=== PATIENT | female | born 1985 | race American Indian/Alaskan Native ===

== ENCOUNTER 2018-03-18 18:44 | Emergency (ER) | payer MEDICAID ==
[2018-03-18] MEDS ORDERED: IBUPROFEN ONE (19:31)
[2018-03-18] MEDS ORDERED: IBUPROFEN PO ONE (19:35)
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
[2018-03-19 00:20] VITALS: BP 151/94
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
== END 2018-03-19 00:51 | disposition home or self-care (01) ==
LOC: ED 18:44
DX: S60.222A Contusion of left hand, initial encounter (principal); Z88.1 Allergy status to other antibiotic agents; Z88.6 Allergy status to analgesic agent; Y04.2XXA Assault by strike against or bumped into by another person, initial encounter; Y93.89 Activity, other specified; Y99.8 Other external cause status; Y92.019 Unspecified place in single-family (private) house as the place of occurrence of the external cause
CPT/HCPCS: 70110; 71046; 99283

== ENCOUNTER 2018-08-07 17:07 | Emergency (ER) | payer MEDICAID, OTHER ==
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
[2018-08-07 18:04] LABS: Basophils # (Auto) 0.1 K/mm3 (0.0-0.1); Basophils % (Auto) 1.2 % (0.0-1.8); Eosinophils # (Auto) 0.1 K/mm3 (0.0-0.4); Eosinophils % (Auto) 0.8 % (0.0-4.3); Hemoglobin 12.5 gm/dl (10.1-14.3); Lymphocytes % (Auto) 28.5 % (13.4-35.0); Mean Corpuscular HGB Conc 33 % (30-34); Mean Corpuscular Volume 84 fl (79-97); Monocytes # (Auto) 0.7 K/mm3 (0.0-0.8); Monocytes % (Auto) 6.8 % (0.0-7.3); Platelet Count 256 K/mm3 (140-440); Red Blood Count 4.52 M/mm3 (3.65-5.03)
[2018-08-07 18:20] LABS: BUN/Creatinine Ratio 12; Blood Urea Nitrogen 6 mg/dL (7-17); Calcium 9.2 mg/dL (8.4-10.2); Hemolysis Index 6
[2018-08-07 18:52] LABS: Bacteria,Urine 1+ /HPF (Negative); Bilirubin,Urine NEG (Negative); Blood,Urine NEG (Negative); Color,Urine Yellow (Yellow); Mucus,Urine FEW /HPF; Protein,Urine <15 mg/dL mg/dL (Negative); Urobilinogen,Urine < 2.0 mg/dL (<2.0)
--- NOTE | 2018-08-07 20:30 | Emergency Department Report ---
ED Female HPI - General Chief complaint: Vaginal Bleeding Stated complaint: 13WKS /SPOTTING Time Seen by Provider: 08/07/18 17:34 Source: patient Mode of arrival: Ambulatory Limitations: No Limitations - History of Present Illness Initial comments: 33-year-old -[place] female that comes in for pelvic cramping and spotting for 45 minutes prior to arrival. Patient currently is not on care or vitamins. Patient reports that the pain is intermittent. MD Complaint: vaginal bleeding, pelvic pain Onset/Timin -: days(s) Location: suprapubic Severity scale (0 -10): 3 Quality: cramping Consistency: intermittent Improves with: none Worsens with: none Are you Now?: Yes Last Menstrual Period: 05/04/18 EDC: 02/08/19 Associated Symptoms: vaginal bleeding, abdominal pain - Related Data Sexually active: Yes : 3 Para: 2 Previous Rx's Medication Instructions Recorded Last Taken Type Acetaminophen/Codeine [Tylenol #3] 1 tab PO Q6H PRN #15 tab 05/31/14 Unknown Rx Cyclopentolate 1% [Cyclogyl] 1 drops OP BID PRN #1 bottle 05/31/14 Unknown Rx Gentamicin 0.3% Ophth Soln 1 drops OP Q4H #1 bottle 05/31/14 Unknown Rx Ibuprofen [Motrin 800 MG tab] 800 mg PO Q8HR PRN #30 tablet 03/17/15 Unknown Rx Ketorolac [Toradol] 10 mg PO Q6H PRN #15 tablet 03/19/18 Unknown Rx methOCARBAMOL [Robaxin] 750 mg PO Q8H PRN #21 tablet 03/19/18 Unknown Rx Nitrofurantoin [place]/M-Cryst 100 mg PO Q12HR 10 Days #20 capsule 08/07/18 Unknown Rx [Macrobid CAP] Allergies Allergy/AdvReac Type Severity Reaction Status Date / Time acetaminophen Allergy Swelling Verified 08/07/18 17:10 [From Tylenol PM] diphenhydramine HCl Allergy Swelling Verified 08/07/18 17:10 [From Tylenol PM] ED Review of Systems ROS: Stated complaint: 13WKS /SPOTTING Other details as noted in HPI Comment: All other systems reviewed and negative Gastrointestinal: abdominal pain ED Past Medical Hx - Past Medical History Previous Medical History?: No Hx Hypertension: (h/o HTN-now resolved) - Surgical History Past Surgical History?: No Additional Surgical History: vag procedure - Social History Smoking Status: Never Smoker Substance Use Type: Other - Medications Home Medications: Home Medications Medication Instructions Recorded Confirmed Last Taken Type Acetaminophen/Codeine [Tylenol #3] 1 tab PO Q6H PRN #15 tab 05/31/14 Unknown Rx Cyclopentolate 1% [Cyclogyl] 1 drops OP BID PRN #1 bottle 05/31/14 Unknown Rx Gentamicin 0.3% Ophth Soln 1 drops OP Q4H #1 bottle 05/31/14 Unknown Rx Ibuprofen [Motrin 800 MG tab] 800 mg PO Q8HR PRN #30 tablet 03/17/15 Unknown Rx Ketorolac [Toradol] 10 mg PO Q6H PRN #15 tablet 03/19/18 Unknown Rx methOCARBAMOL [Robaxin] 750 mg PO Q8H PRN #21 tablet 03/19/18 Unknown Rx Nitrofurantoin [place]/M-Cryst 100 mg PO Q12HR 10 Days #20 capsule 08/07/18 Unknown Rx [Macrobid CAP] ED Physical Exam - General Limitations: No Limitations General appearance: alert, in no apparent distress - Head Head exam: Present: atraumatic, normocephalic - Eye Eye exam: Present: normal appearance - ENT ENT exam: Present: mucous membranes moist - Neck Neck exam: Present: normal inspection - Respiratory Respiratory exam: Present: normal lung sounds bilaterally. Absent: respiratory distress - Cardiovascular Cardiovascular Exam: Present: regular rate, normal rhythm. Absent: systolic m urmur, diastolic murmur, rubs, gallop - GI/Abdominal GI/Abdominal exam: Present: soft, normal bowel sounds - Extremities Exam Extremities exam: Present: normal inspection - Back Exam Back exam: Present: normal inspection - Neurological Exam Neurological exam: Present: alert, oriented X3 - Psychiatric Psychiatric exam: Present: normal affect, normal mood - Skin Skin exam: Present: warm, dry, intact, normal color. Absent: rash ED Course Vital Signs 08/07/18 17:34 Temperature 98.5 F Pulse Rate 103 H Respiratory 18 Rate Blood Pressure 147/84 O2 Sat by Pulse 98 Oximetry ED Medical Decision Making - Lab Data Result diagrams: 08/07/18 17:40 08/07/18 17:40 Critical care attestation.: If time is entered above; I have spent that time in minutes in the direct care of this critically ill patient, excluding procedure time. ED Disposition Clinical Impression: Vaginal spotting UTI (urinary tract infection) during Qualifiers: Trimester: first trimester Qualified Code(s): O23.41 - Unspecified infection of urinary tract in , first trimester Disposition: TO HOME OR SELFCARE Is pt being admited?: No Does the pt Need Aspirin: No Condition: Stable Instructions: Urinary Tract Infection in Women (ED), Threatened Miscarriage (ED) Additional Instructions: Complete antibiotics as prescribed. Tylenol as needed for pain management. 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 Prescriptions: Nitrofurantoin [place]/M-Cryst [Macrobid CAP] 100 mg PO Q12HR 10 Days #20 capsule Referrals: BUDDY LIM MD [Primary Care Provider] - 3-5 Days [facility] [Provider Group] - 3-5 Days [facility] [Provider Group] - 3-5 Days [facility] [Provider Group] - 3-5 Days [facility] [Provider Group] - 3-5 Days
--- NOTE | 2018-08-07 20:52 | Ultrasound Report ---
PROCEDURE: US OB <= 14 WEEKS FETUS TECHNIQUE: OB ultrasound obtained. HISTORY: Vaginal bleeding COMPARISONS: None FINDINGS: Uterus measures 11.5 x 7.1 x 8.5 cm. Single IUP visualized with crown-rump length of 7.3 cm correspon ding gestational age of 13 weeks and 3 days. Viable fetus with heart rate of 156 bpm. Placenta is anteriorly located. Right ovary measures 2.4 x 1.8 x 2.4 cm. Left ovary measures 2.4 x 1.6 x 2.2 cm. Doppler flow seen in both ovaries. IMPRESSION: Single IUP visualized with crown-rump length of 7.3 cm corresponding gestational age of 13 weeks and 3 days. Viable fetus with heart rate of 156 bpm.. This document is electronically signed by Sherrill Melchor MD., August 07 2018 08:50:42 PM ET
[2018-08-07 22:19] VITALS: BP 138/78
== END 2018-08-07 22:19 | disposition home or self-care (01) ==
LOC: ED 17:07
DX: O23.41 Unspecified infection of urinary tract in pregnancy, first trimester (principal); O20.9 Hemorrhage in early pregnancy, unspecified; Z79.899 Other long term (current) drug therapy; Z3A.13 13 weeks gestation of pregnancy; Z88.6 Allergy status to analgesic agent
CPT/HCPCS: 36415; 76801; 80048; 81001; 84702; 85025; 86900; 86901; 87086; 99284; G0480; 80320

== ENCOUNTER 2019-01-18 10:14 | Outpatient (CLI) | payer OTHER ==
[2019-01-18] MEDS ORDERED: LACTATED RINGERS 1,000 ML ONE ×3 (11:24→15:16)
[2019-01-18] MEDS ORDERED: TERBUTALINE 1 MG/1 ML INJ ONE (11:25)
[2019-01-18 12:02] LABS: Hematocrit 33.9 % (30.3-42.9); Hemoglobin 10.9 gm/dl (10.1-14.3); Mean Corpuscular HGB Conc 32 % (30-34); Mean Corpuscular Volume 77 fl (79-97); Platelet Count 184 K/mm3 (140-440); Red Blood Count 4.39 M/mm3 (3.65-5.03); Red Cell Distribution Width 15.4 % (13.2-15.2)
[2019-01-18] MEDS ORDERED: BICITRA ORAL LIQD 30ML ONE (12:53)
[2019-01-18] MEDS ORDERED: BUPIVACAINE/PF (0.5%) 5 MG/1 ML 10 ML VIAL INFILTRATI ONE (14:31)
[2019-01-18] MEDS ORDERED: ePHEDrine SULFATE 50 MG/1 ML INJ IV PRN (14:51)
[2019-01-18] MEDS ORDERED: NALOXONE 2 MG/2 ML INJ IV PRN (14:51)
[2019-01-18] MEDS ORDERED: fentaNYL-BUPIV 2 MCG/ML-0.125% 200 MCG/100 ML BAG EPIDURAL SCH (15:00)
--- NOTE | 2019-01-18 15:10 | History and Physical Report ---
History of Present Illness Date of examination: 01/18/19 Date of admission: 01/18/2019 Chief complaint: breech presentation History of present illness: 33y/o @ 37+0 weeks presents for an external cephalic version secondary to breech presentation. course complicated by chronic hypertension, h/o preeclampsia, STD exposure. Past History Past Medical History: hypertension Past Surgical History: no surgical history GUIDE CHANGER History: herpes Social history: single - Obstetrical History Expected Date of Delivery: 02/08/19 Actual Gestation: 37 Week(s) 0 Day(s) : 3 Para: 2 Hx # Term Pregnancies: 2 Number of Pregnancies: 0 Spontaneous Abortions: 0 Induced : 0 Number of Living Children: 2 Medications and Allergies Allergies Allergy/AdvReac Type Severity Reaction Status Date / Time acetaminophen Allergy Swelling Verified 08/07/18 17:10 [From Tylenol PM] diphenhydramine HCl Allergy Swelling Verified 08/07/18 17:10 [From Tylenol PM] Home Medications Medication Instructions Recorded Confirmed Last Taken Type Acetaminophen/Codeine [Tylenol #3] 1 tab PO Q6H PRN #15 tab 05/31/14 Unknown Rx Cyclopentolate 1% [Cyclogyl] 1 drops OP BID PRN #1 bottle 05/31/14 Unknown Rx Gentamicin 0.3% Ophth Soln 1 drops OP Q4H #1 bottle 05/31/14 Unknown Rx Ibuprofen [Motrin 800 MG tab] 800 mg PO Q8HR PRN #30 tablet 03/17/15 Unknown Rx Ketorolac [Toradol] 10 mg PO Q6H PRN #15 tablet 03/19/18 Unknown Rx methOCARBAMOL [Robaxin] 750 mg PO Q8H PRN #21 tablet 03/19/18 Unknown Rx Nitrofurantoin [place]/M-Cryst 100 mg PO Q12HR 10 Days #20 capsule 08/07/18 Unknown Rx [Macrobid CAP] Active Meds: Active Medications Ephedrine Sulfate (Ephedrine Sulfate) 10 mg IV Q2M PRN PRN Reason: Hypotension Fentanyl/Bupivacaine/Sodium Chlor (Fentanyl-Bupiv 2 Mcg/Ml-0.125%) 200 mcg in 100 mls @ 12 mls/hr EPIDURAL TITR ROWENA; Protocol Naloxone HCl (Naloxone) 0.2 mg IV Q5M PRN PRN Reason: Respiratory sedation Review of Systems All systems: negative Genitourinary: no vaginal bleeding, no leakage of fluid - Vital Signs Vital signs: Vital Signs Temp Pulse Resp BP 98.3 F 85 18 118/63 01/18/19 11:38 01/18/19 11:38 01/18/19 11:38 01/18/19 11:38 Temp Pulse Resp BP Pulse Ox 98.3 F 110 H 20 112/57 100 01/18/19 11:38 01/18/19 15:02 01/18/19 14:00 01/18/19 15:00 01/18/19 15:02 - Physical Exam Breasts: Positive: deferred Cardiovascular: Regular rate Lungs: Positive: Clear to auscultation Abdomen: Positive: normal appearance Results Result Diagrams: 01/18/19 11:42 Abnormal lab results 01/18/19 Range/Units 11:42 MCV 77 L (79-97) fl MCH 25 L (28-32) pg RDW 15.4 H (13.2-15.2) % All other labs normal. Assessment and Plan - Patient Problems (1) Breech presentation Current Visit: Yes Status: Acute Plan to address problem: scheduled to undergo an ECV
--- NOTE | 2019-01-18 15:14 | Event Note ---
Date: 01/18/19 After placement of the epidural, bradycardic episode occurred. Patient experienced nausea and vomiting with associated hypotension. IV bolus along with O2 administered. tracing prior to epidural was Cat I. Will postpone procedure until well being is assured.
--- NOTE | 2019-01-18 17:17 | Operative Report ---
Operative Report Operative Report: Date of procedure: 01/18/2019 Pre-operative diagnosis: at 37+0 weeks; breech presentation Post-operative diagnosis: Same as above Procedure name(s): External cephalic version Surgeon: Minal Butler M.D. Anesthesia: Regional Findings [place] gestation in breech presentation Procedure Prior to performing the procedure the patient had been counseled and written consent had been obtained. The patient was given regional anesthesia without complication. A nonstress test was performed prior to and after placement of the regional anesthesia. An ultrasound was used to verify that the head was at the maternal left side. The procedure was initiated with maneuvering the fetus into vertex presentation. 3 attempts were made and the well-being was assessed in between each attempt. After conclusion of the third attempt the fetus was noted to be in transverse presentation. There was no evidence of any active bleeding or leakage of fluid. The patient received prolonged monitoring on labor and delivery.
[2019-01-18 21:12] VITALS: BP 118/57
--- NOTE | 2019-01-18 21:15 | Anesthesia Consultation ---
Anesthesia Consult and Med Hx Date of service: 01/18/19 - Airway Anesthetic Teeth Evaluation: Poor ROM Head & Neck: Adequate Mental/Hyoid Distance: Adequate Mallampati Class: Class II Intubation Access Assessment: Probably Good - Pulmonary Exam CTA: Yes - Cardiac Exam Cardiac Exam: RRR - Pre-Operative Health Status ASA Pre-Surgery Classification: ASA2 Proposed Anesthetic Plan: Epidural - Pulmonary Hx Smoking: No Hx Asthma: No Hx Respiratory Symptoms: No SOB: No COPD: No Home Oxygen Therapy: No Hx Pneumonia: No Hx Sleep Apnea: No - Cardiovascular System Hx Hypertension: Yes (with second ) Hx Coronary Artery Disease: No Hx Heart Attack/AMI: No Hx Angina: No Hx Percutaneous Transluminal Coronary Angioplasty (PTCA): No Hx Cardia Arrhythmia: No Hx Pacemaker: No Hx Internal Defibrillator: No Hx Valvular Heart Disease: No Hx Heart Murmur: No Hx Peripheral Vascular Disease: No - Central Nervous System Hx Neuromuscular Disorder: No Hx Seizures: No CVA: No Hx Back Pain: No Hx Psychiatric Problems: No - Gastrointestinal Hx Ulcer: No Hx Gastroesophageal Reflux Disease: No - Endocrine Hx Renal Disease: No Hx End Stage Renal Disease: No Hx Cirrhosis: No Hx Liver Disease: No Hx Insulin Dependent Diabetes: No Hx Non-Insulin Dependent Diabetes: No Hx Thyroid Disease: No Hx Hypothyroidism: No Hx Hyperthyroidism: No - Hematic Hx Anemia: No Hx Sickle Cell Disease: No - Other Systems Hx Alcohol Use: No Hx Substance Use: No Hx Cancer: No Hx Obesity: Yes
--- NOTE | 2019-01-18 23:16 | Ultrasound Report ---
US OB BPP wo non-stress INDICATION / CLINICAL INFORMATION: BPP. COMPARISON: None available. FINDINGS: Biophysical profile score is 8 of 8. cardiac activity was recorded at 150 bpm. Signer Name: Shar Hernandez MD Signed: 01/18/2019 11:12 PM Workstation Name: [id number]
== END 2019-01-18 22:05 | disposition home or self-care (01) ==
LOC: TRG 10:14 → LD 10:15 → TRG 22:05
PROVIDERS: ATTEND Obstetrics & Gynecology
DX: O47.1 False labor at or after 37 completed weeks of gestation (principal); Z3A.37 37 weeks gestation of pregnancy
CPT/HCPCS: 36415; 76819; 85027; 86850; 86900; 86901; J3105; J7120

== ENCOUNTER 2019-01-26 14:08 | Outpatient (CLI) | payer OTHER ==
[2019-01-26 14:41] VITALS: BP 127/73
[2019-01-26] MEDS ORDERED: LACTATED RINGERS 0 ML ONE (16:57)
--- NOTE | 2019-01-26 17:38 | Ultrasound Report ---
ULTRASOUND OBSTETRIC LIMITED ULTRASOUND BIOPHYSICAL PROFILE INDICATION / CLINICAL INFORMATION: Uterine contractions, labor COMPARISON: Biophysical profile 01/18/2019 FINDINGS: BREATHING MOVEMENT = 0 GROSS BODY MOVEMENT = 2 TONE = 2 QUALITATIVE AMNIOTIC FLUID VOLUME = 2 TOTAL BIOPHYSICAL SCORE = 6/8 AMNIOTIC FLUID INDEX (cm) = 10.3 PRESENTATION: Cephalic. HEART RATE (beats per minute): 137 ADDITIONAL FINDINGS: None. IMPRESSION: 1. Biophysical Score = 6/8 Signer Name: Amos Stokes MD Signed: 01/26/2019 5:33 PM Workstation Name: [id number]
== END 2019-01-26 17:17 | disposition home or self-care (01) ==
LOC: TRG 14:08
PROVIDERS: ATTEND Obstetrics & Gynecology
DX: O47.1 False labor at or after 37 completed weeks of gestation (principal); Z3A.38 38 weeks gestation of pregnancy
CPT/HCPCS: 59025; 76815; 76819; J7120

== ENCOUNTER 2019-01-27 02:07 | Inpatient (IN) | payer OTHER ==
[2019-01-27] MEDS ORDERED: NALOXONE 0.4 MG/1 ML INJ IV PRN ×2 (03:34→20:50)
[2019-01-27] MEDS ORDERED: TERBUTALINE 1 MG/1 ML INJ SUB-Q PRN (03:34)
[2019-01-27] MEDS ORDERED: ePHEDrine SULFATE 50 MG/1 ML INJ IV PRN ×2 (03:34→14:44)
[2019-01-27] MEDS ORDERED: LIDOCAINE (2%) 20 MG/1 ML VIAL 20 ML MDV INFILTRATI ONE (03:34)
[2019-01-27] MEDS ORDERED: ONDANSETRON 4 MG/2 ML INJ IV PRN (03:34)
[2019-01-27] MEDS ORDERED: AMPICILLIN/NS 2 GM/100 ML 2 GM/100 ML BAG IV ONE (03:34)
[2019-01-27] MEDS ORDERED: TERBUTALINE 1 MG/1 ML INJ IVP PRN (03:34)
[2019-01-27] MEDS ORDERED: MINERAL OIL 30 ML ORAL LIQD PO PRN (03:34)
[2019-01-27 03:59] LABS: Hematocrit 37.4 % (30.3-42.9); Mean Corpuscular HGB Conc 32 % (30-34); Mean Corpuscular Volume 79 fl (79-97); Platelet Count 172 K/mm3 (140-440); Red Blood Count 4.77 M/mm3 (3.65-5.03); Red Cell Distribution Width 16.2 % (13.2-15.2)
[2019-01-27] MEDS ORDERED: OXYTOCIN 20 UNIT/1000ML DRIP 20 UNITS/1,000 ML BAG IV SCH ×3 (04:00→20:50)
[2019-01-27] MEDS ORDERED: OXYTOCIN DRIP 30 UNITS/500 ML BAG IV SCH ×2 (04:00)
[2019-01-27] MEDS ORDERED: LACTATED RINGERS 1,000 ML IV SCH ×2 (04:00→16:00)
[2019-01-27] MEDS: BUTORPHANOL 2 MG/1 ML INJ IV PRN ×2 (04:00→08:34)
--- NOTE | 2019-01-27 04:58 | History and Physical Report ---
History of Present Illness Date of examination: 01/27/19 Date of admission: 01/27/19 03:34 Chief complaint: contractions History of present illness: Pt is a 33 year old VASILE 02/08/19 at 38w2d presents with regular contractions and advanced cervical dilation of 5 cm. She was evaluated in triage yesterday and was 3 cm at that time. She denies vaginal bleeding or leakage of fluid. 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, chlamydia (treated with negative test of cure ), herpes, trichomonas (treated with negative test of cure ) Family/Genetic History: heart disease, hypertension Social history: no significant social history - Obstetrical History Expected Date of Delivery: 02/08/19 Actual Gestation: 38 Week(s) 2 Day(s) : 3 Para: 2 Hx # Term Pregnancies: 2 Number of Pregnancies: 0 Spontaneous Abortions: 0 Induced : 0 Number of Living Children: 2 Medications and Allergies Allergies Allergy/AdvReac Type Severity Reaction Status Date / Time diphenhydramine HCl Allergy Mild Swelling Verified 01/27/19 03:03 [From Tylenol PM] Home Medications Medication Instructions Recorded Confirmed Last Taken Type Acetaminophen/Codeine [Tylenol #3] 1 tab PO Q6H PRN #15 tab 05/31/14 Unknown Rx Cyclopentolate 1% [Cyclogyl] 1 drops OP BID PRN #1 bottle 05/31/14 Unknown Rx Gentamicin 0.3% Ophth Soln 1 drops OP Q4H #1 bottle 05/31/14 Unknown Rx Ibuprofen [Motrin 800 MG tab] 800 mg PO Q8HR PRN #30 tablet 03/17/15 Unknown Rx Ketorolac [Toradol] 10 mg PO Q6H PRN #15 tablet 03/19/18 Unknown Rx methOCARBAMOL [Robaxin] 750 mg PO Q8H PRN #21 tablet 03/19/18 Unknown Rx Nitrofurantoin Wake/M-Cryst 100 mg PO Q12HR 10 Days #20 capsule 08/07/18 Unknown Rx [Macrobid CAP] Active Meds: Active Medications Butorphanol Tartrate (Stadol) 2 mg IV Q2H PRN PRN Reason: Pain , Severe (7-10) Last Admin: 01/27/19 04:00 Dose: 2 mg Documented by: Ephedrine Sulfate (Ephedrine Sulfate) 10 mg IV Q2M PRN PRN Reason: Hypotension Fentanyl (Sublimaze) 100 mcg IV Q2H PRN PRN Reason: Labor Pain Oxytocin/Sodium Chloride (Pitocin/Ns 20 Unit/1000ml Drip) 20 units in 1,000 mls @ 125 mls/hr IV DIRECT ROWENA Oxytocin/Sodium Chloride (Pitocin/Ns 30 Unit/500ml) 30 units in 500 mls @ 1 mls/hr IV TITR ROWENA; Protocol Oxytocin/Sodium Chloride (Pitocin/Ns 30 Unit/500ml) 30 units in 500 mls @ 4 mls/hr IV TITR ROWENA; Protocol Lactated Ringer's (Lactated Ringers) 1,000 mls @ 125 mls/hr IV DIRECT ROWENA Ampicillin Sodium (Ampicillin/Ns 1 Gm/50 Ml) 1 gm in 50 mls @ 100 mls/hr IV Q4HR ROWENA; Protocol Mineral Oil (Mineral Oil) 30 ml PO QHS PRN PRN Reason: Constipation Naloxone HCl (Naloxone) 0.1 mg IV Q2MIN PRN PRN Reason: Res Rate </= 8 or 02 SAT < 92% Ondansetron HCl (Zofran) 4 mg IV Q8H PRN PRN Reason: Nausea And Vomiting Terbutaline Sulfate (Brethine) 0.25 mg SUB-Q ONCE PRN PRN Reason: Hyperstimulation/Hypertonicity Terbutaline Sulfate (Brethine) 0.25 mg IVP ONCE PRN PRN Reason: Hyperstimulation/Hypertonicity Review of Systems All systems: negative - Vital Signs Vital signs: Vital Signs Temp Pulse Resp BP Pulse Ox 98.4 F 93 H 22 130/71 98 01/27/19 03:04 01/27/19 03:04 01/27/19 03:04 01/27/19 03:04 01/27/19 03:04 Temp Pulse Resp BP Pulse Ox 98.4 F 103 H 22 136/73 98 01/27/19 03:04 01/27/19 04:51 01/27/19 04:39 01/27/19 04:39 01/27/19 04:51 - Physical Exam Breasts: Positive: deferred Cardiovascular: Regular rate Lungs: Positive: Clear to auscultation Abdomen: Positive: soft (obese ) Genitourinary (Female): Positive: normal external genitalia Uterus: Positive: enlarged (gravid ) Extremities: Positive: normal - Obstetrical FHR: auscultation normal Uterine Contraction Monitor Mode: External Cervical Dilatation: 6.5 Cervical Effacement Percentage: 100 station: -2 Uterine Contraction Pattern: Regular Uterine Tone Measurement Phase: Resting Uterine Contraction Intensity: Strong/Firm Results Result Diagrams: 01/27/19 03:00 Abnormal lab results 01/27/19 Range/Units 03:00 WBC 11.3 H (4.5-11.0) K/mm3 MCH 25 L (28-32) pg RDW 16.2 H (13.2-15.2) % All other labs normal. Assessment and Plan A: IUP at 38w2d Active labor GBS positive Genital Herpes Obesity P: Admit to labor and delivery Routine intrapartum care
[2019-01-27] MEDS: AMPICILLIN/NS 1 GM/50 ML 1 GM/50 ML BAG IV SCH ×2 (07:21→12:56)
--- NOTE | 2019-01-27 08:25 | Event Note ---
Date: 01/27/19 SVE 7-/-3 bulging bag of water. Pt elects for AROM. AROM copious clear fluid with reassuring FHT throughout.
[2019-01-27] MEDS: fentaNYL 100 MCG/2 ML INJ IV PRN ×2 (10:47→13:18)
--- NOTE | 2019-01-27 12:51 | Event Note ---
Date: 01/27/19 SVE unchanged despite regular uterine contractions. FSE and IUPC placed in sterile fashion. Initiate epidural and Pitocin augmentation. FHT remain Category 1 Continue to monitor
[2019-01-27] MEDS ORDERED: DINOPROSTONE 10 MG VAG SUPP VG ONE (13:50)
[2019-01-27] MEDS ORDERED: NALOXONE 2 MG/2 ML INJ IV PRN (14:44)
[2019-01-27] MEDS ORDERED: BICITRA ORAL LIQD 30ML ONE (14:46)
[2019-01-27] MEDS ORDERED: FAMOTIDINE 20 MG/2 ML INJ IV ONE ×2 (14:46→15:58)
[2019-01-27] MEDS ORDERED: ceFAZolin/Water 2 GM/20 ML 2 GM/20 ML SYRINGE IV ONE (14:46)
[2019-01-27] MEDS ORDERED: METOCLOPRAMIDE 10 MG/2 ML INJ ONE (14:46)
[2019-01-27] MEDS ORDERED: DEXMEDETOMIDINE 200 MCG/2 ML VIAL IV ONE (14:52)
[2019-01-27] MEDS ORDERED: fentaNYL-BUPIV 2 MCG/ML-0.125% 200 MCG/100 ML BAG EPIDURAL SCH (15:00)
[2019-01-27] MEDS ORDERED: METOCLOPRAMIDE 10 MG/2 ML INJ IV ONE (15:58)
[2019-01-27] MEDS ORDERED: BICITRA ORAL LIQD 30ML PO ONE (15:58)
[2019-01-27] MEDS ORDERED: LIDOCAINE MPF (2%) 20 MG/1 ML VIAL 5 ML ONE (16:18)
[2019-01-27] MEDS ORDERED: OXYTOCIN 10 UNIT/1 ML INJ ONE (16:44)
[2019-01-27] MEDS ORDERED: ONDANSETRON 4 MG/2 ML INJ ONE (16:59)
[2019-01-27] MEDS ORDERED: KETOROLAC 30 MG/1 ML INJ ONE ×2 (17:01→18:39)
--- NOTE | 2019-01-27 17:16 | Operative Report ---
Operative Report Operative Report: Date of procedure: January 27, 2019 Preoperative diagnosis: 1) IUP at 38w2d 2) Active labor 3) Arrest of Dilation 4) Obesity Postoperative diagnosis: Same Procedure: Primary low transverse section Surgeon: Sunshine Stovall M.D. Anesthesia: Regional Findings: 1) Viable male , Apgars 8 and 9, weight 2798g, (6 lb 2.6 oz) in cephalic presentation. Occiput Posterior 2) Normal-appearing uterus ovaries and tubes Estimated blood loss: 900 mL IV fluids: 800 mL Urine output: 100 mL, clear at the end of the procedure Drains: Feliciano to gravity Specimens: Placenta to pathology Complications: Counts correct x 3 Disposition: Stable to PACU Indication for procedure: Pt is a 33 year old -[place] female at 38w2d presents in active labor and did not progress beyond 8 cm over 4 hours of adequate contractility. The decision was made to proceed to delivery. Operation in detail: After the risks, benefits, alternatives and complications were explained to the patient she gave informed consent for the procedure. She was subsequently taken to the operating room where regional anesthesia was noted to be adequate. She was subsequently placed in the dorsal supine position with leftward tilt and prepped and draped in a normal sterile fashion. heart tones were noted prior to incision. A timeout was performed. A Pfannenstiel skin incision was made with the knife and carried down to the layer of the fascia with the Bovie. The fascia was incised in the midline and the fascial incision was extended bilaterally with the Pierce scissors. The fascial incision was then stretched. The rectus muscles were then in the midline. The peritoneum was then entered bluntly. The peritoneal incision was extended with good visualization of the bladder. The peritoneal incision was then stretched. An Mitch retractor was placed. The bladder blade was placed. The vesicouterine peritoneum was grasped with smooth pickups and incised with Metzenbaum scissors. Metzenbaum scissors were used to extend the incision bilaterally. The bladder flap was then created digitally and the bladder blade was replaced. A transverse incision was made in the lower uterine segment with a knife and extended bilaterally with the bandage scissors. The head was delivered without difficulty followed by shoulders and body. was bulb suctioned at delivery. The cord was clamped and cut and the was handed to NICU staff in attendance. Cord blood was collected. The placenta was then delivered manually. The uterus was then exteriorized and cleared of all clots and debris. The hysterotomy was then reapproximated with 0 Vicryl in a running locked fashion. A second layer of the same suture was used in an imbricating fashion. The hysterotomy was inspected and hemostasis was noted. The uterus was placed back into the peritoneal cavity. The gutters were irrigated and cleared of all clots and debris. The hysterotomy was again inspected and noted to be hemostatic. Hemoblast was placed over the hysterotomy. Surgicel was placed over the hysterot mellisa. Intercede was placed over the anterior surface of the uterus. The peritoneum was reapproximated with 3-0 Vicryl in a running fashion. The rectus muscles were reapproximated with figure of eight of 0 Vicryl. The fascia was reapproximated with 1 PDS in a running fashion. The subcutaneous tissue was reapproximated with 3-0 Vicryl in a running fashion. The skin was reapproximated with 4-0 Vicryl in a subcuticular fashion. The incision was then covered with steri strips and a pressure dressing. The procedure was then ended. The patient tolerated the procedure well and was taken to the PACU in stable condition. All instrument, lap, and needle counts were correct 3.
--- NOTE | 2019-01-27 17:16 | Procedure Note ---
OB Delivery Note - Delivery Date of Delivery: 01/27/19 Surgeon: GREG SWANSON Estimated blood loss: other (900 mL) - Section Preop diagnosis: arrest of dilation Postop diagnosis: same section procedure: section, primary low transverse Disposition: PACU Complications: none Narrative: Please see operative report - A at 1 minute: 8 at 5 minutes: 9 Gender: Male (2798g (6lb 2.6 oz) at 1633 pm)
--- NOTE | 2019-01-27 17:26 | Anesthesia Consultation ---
Anesthesia Consult and Med Hx Date of service: 01/27/19 - Airway Anesthetic Teeth Evaluation: Good ROM Head & Neck: Adequate Mental/Hyoid Distance: Adequate Mallampati Class: Class II Intubation Access Assessment: Probably Good - Pulmonary Exam CTA: Yes - Cardiac Exam Cardiac Exam: RRR - Pre-Operative Health Status ASA Pre-Surgery Classification: ASA2 Proposed Anesthetic Plan: Epidural - Pulmonary Hx Smoking: No Hx Asthma: No Hx Respiratory Symptoms: No SOB: No COPD: No Hx Pneumonia: No Hx Sleep Apnea: No - Cardiovascular System Hx Hypertension: No Hx Coronary Artery Disease: No Hx Heart Attack/AMI: No Hx Angina: No Hx Percutaneous Transluminal Coronary Angioplasty (PTCA): No Hx Cardia Arrhythmia: No Hx Pacemaker: No Hx Internal Defibrillator: No Hx Valvular Heart Disease: No Hx Heart Murmur: No Hx Peripheral Vascular Disease: No - Central Nervous System Hx Neuromuscular Disorder: No Hx Seizures: No CVA: No Hx Back Pain: No Hx Psychiatric Problems: No - Gastrointestinal Hx Ulcer: No Hx Gastroesophageal Reflux Disease: No - Endocrine Hx Renal Disease: No Hx End Stage Renal Disease: No Hx Cirrhosis: No Hx Liver Disease: No Hx Insulin Dependent Diabetes: No Hx Non-Insulin Dependent Diabetes: No Hx Thyroid Disease: No Hx Hypothyroidism: No Hx Hyperthyroidism: No - Hematic Hx Anemia: No Hx Sickle Cell Disease: No - Other Systems Hx Alcohol Use: No Hx Substance Use: No Hx Cancer: No Hx Obesity: Yes
--- NOTE | 2019-01-27 17:27 | Post Anesthesia Evaluation ---
- Post Anesthesia Evaluation Patient Participated: Yes Airway Patent: Yes Stable Respiratory Function: Yes Nausea/Vomiting: No Temp > 96.8F: Yes Pain Manageable: Yes Adequeate Hydration: Yes Anesthesia Complications: No Block Receding Appropriately: Yes Patient on Ventilator: No
--- NOTE | 2019-01-27 17:27 | Anesthesia Day of Surgery ---
Anesthesia Day of Surgery - Day of Surgery Patient Examined: Yes Patient H&P Reviewed: Yes Patient is NPO: Yes Beta Blockers: No Cardiac Clearance: No Pulmonary Clearance: No Tim's Test: N/A
[2019-01-27 19:35] LABS: Basophils # (Auto) 0.1 K/mm3 (0.0-0.1); Basophils % (Auto) 0.4 % (0.0-1.8); Hematocrit 34.3 % (30.3-42.9); Lymphocytes % (Auto) 6.1 % (13.4-35.0); Mean Corpuscular HGB Conc 32 % (30-34); Mean Corpuscular Volume 78 fl (79-97); Monocytes # (Auto) 1.3 K/mm3 (0.0-0.8); Monocytes % (Auto) 7.9 % (0.0-7.3); Platelet Count 186 K/mm3 (140-440); Red Blood Count 4.41 M/mm3 (3.65-5.03); Red Cell Distribution Width 16.1 % (13.2-15.2)
[2019-01-27] MEDS ORDERED: MAGNESIUM HYDROXIDE (MOM) ORAL LIQD UDC PO PRN (20:50)
[2019-01-27] MEDS ORDERED: LANOLIN/ZINC/DIMETHICONE (LANSINOH) 7 GM TP PRN (20:50)
[2019-01-27] MEDS ORDERED: SIMETHICONE 80 MG CHEW TAB PO PRN (20:50)
[2019-01-27] MEDS ORDERED: WITCH HAZEL/ GLYCERIN PAD TP PRN (20:50)
[2019-01-27] MEDS ORDERED: D5W/LACTATED RINGERS 1,000 ML IV SCH (20:50)
[2019-01-27] MEDS ORDERED: MORPHINE 2 MG/1 ML INJ IV PRN (20:50)
[2019-01-27] MEDS: MORPHINE 4 MG/1 ML INJ IV PRN (21:15)
[2019-01-27] MEDS ORDERED: ceFAZolin/NS 1 GM/50 ML 1 GM/50 ML BAG IV SCH (23:00)
[2019-01-28] MEDS: KETOROLAC 30 MG/1 ML INJ IV PRN ×2 (00:12→05:31)
[2019-01-28] MEDS: MORPHINE 4 MG/1 ML INJ IV PRN (02:44)
[2019-01-28] MEDS ORDERED: MEASLES, MUMPS & RUBELLA 12,500 UNIT/0.5 ML VACCINE SUB-Q ONE (06:00)
[2019-01-28] MEDS ORDERED: TETANUS,DIPH,PERTUSS(ACELL) VACCINE 0.5 ML SYRINGE IM ONE (06:00)
[2019-01-28 06:11] LABS: Hematocrit 29.6 % (30.3-42.9); Hemoglobin 9.8 gm/dl (10.1-14.3)
[2019-01-28] MEDS: oxyCODONE /ACETAMINOPHEN 5-325MG TAB PO PRN ×2 (08:25→16:05)
--- NOTE | 2019-01-28 08:58 | Progress Note ---
Assessment and Plan A/P POD 1 s/p primary csec for failute to progress routine PP care Subjective - Subjective Date of service: 01/28/19 Principal diagnosis: s/p primarey csec for failutre to progress Patient reports: appetite normal, voiding normally, pain well controlled, ambulating normally [place]: doing well Objective - Vital Signs Latest vital signs: Vital Signs Temp Pulse Resp BP BP Pulse Ox 01/28/19 08:06 97.3 F L 95 H 18 123/66 01/28/19 04:00 98.7 F 66 18 108/75 01/27/19 23:30 98.7 F 69 18 112/69 01/27/19 21:21 98.6 F 96 H 20 140/86 140/86 99 01/27/19 18:15 78 24 86/65 99 01/27/19 18:00 78 20 98/49 99 01/27/19 17:55 84 20 112/69 98 01/27/19 17:50 80 24 108/65 97 01/27/19 17:45 77 23 103/62 97 01/27/19 17:40 77 20 109/63 98 01/27/19 17:35 76 20 111/69 97 01/27/19 17:30 77 20 107/68 97 01/27/19 17:25 99.2 F 79 20 97/59 98 01/27/19 16:00 97.9 F 01/27/19 15:52 99 H 108/62 100 01/27/19 15:49 84 96/53 01/27/19 15:47 99 H 100 01/27/19 15:46 90 96/49 01/27/19 15:45 96 H 90 01/27/19 15:43 100 H 94/54 01/27/19 15:42 94 H 100 01/27/19 15:40 82 102/51 01/27/19 15:37 80 108/55 100 01/27/19 15:34 96 H 97/55 01/27/19 15:32 99 H 100 01/27/19 15:31 103 H 109/55 01/27/19 15:28 99 H 100/51 01/27/19 15:27 90 100 01/27/19 15:25 102 H 114/58 01/27/19 15:22 110 H 117/58 98 01/27/19 15:19 112 H 121/72 01/27/19 15:17 106 H 98 01/27/19 15:16 110 H 120/67 01/27/19 15:13 81 130/70 01/27/19 15:12 107 H 99 01/27/19 15:10 100 H 141/69 01/27/19 15:07 104 H 152/70 100 01/27/19 15:04 110 H 144/72 01/27/19 15:01 108 H 146/71 99 01/27/19 14:58 109 H 146/71 01/27/19 14:57 76 79 L 01/27/19 14:55 109 H 140/68 01/27/19 14:52 111 H 99 01/27/19 14:40 119 H 96 01/27/19 14:35 97 H 165/85 98 01/27/19 14:27 106 H 97 01/27/19 14:25 103 H 161/90 01/27/19 14:21 105 H 100 01/27/19 14:15 98 H 94 01/27/19 14:14 97 H 176/123 01/27/19 14:09 110 H 87 Intake and Output 01/27/19 01/28/19 01/28/19 23:59 07:59 15:59 Intake Total 2100 300 480 Output Total 600 Balance 1500 300 480 Intake: IV 2100 Oral 480 Intake, Free Water 300 Output: Urine 600 Uretheral (Feliciano) 100 Other: Total, Intake Amount 480 Voiding Method Indwelling Catheter Estimated Blood Loss 900 - Exam Breasts: Present: normal Cardiovascular: Present: Regular rate, Normal S1 Lungs: Present: Clear to auscultation, Normal air movement Abdomen: Present: normal appearance, soft, normal bowel sounds. Absent: distention, tenderness, guarding Uterus: Present: normal, firm, fundal height below umbilicus. Absent: bogginess, tenderness Extremities: Present: normal Deep Tendon Reflex Grade: Normal +2 Incision: Present: normal, dry, intact - Labs Labs: Abnormal lab results 01/27/19 01/28/19 Range/Units 19:18 05:37 WBC 16.7 H (4.5-11.0) K/mm3 Hgb 9.8 L (10.1-14.3) gm/dl Hct 29.6 L (30.3-42.9) % MCV 78 L (79-97) fl MCH 25 L (28-32) pg RDW 16.1 H (13.2-15.2) % Lymph % (Auto) 6.1 L (13.4-35.0) % Cedar % (Auto) 7.9 H (0.0-7.3) % Lymph # 1.0 L (1.2-5.4) K/mm3 Cedar # 1.3 H (0.0-0.8) K/mm3 Seg Neutrophils % 85.6 H (40.0-70.0) % Seg Neutrophils # 14.3 H (1.8-7.7) K/mm3
[2019-01-28] MEDS: IBUPROFEN 800 MG TAB PO PRN (23:41)
[2019-01-29] MEDS: IBUPROFEN 800 MG TAB PO PRN (05:26)
[2019-01-29] MEDS: oxyCODONE /ACETAMINOPHEN 5-325MG TAB PO PRN ×3 (08:59→21:48)
--- NOTE | 2019-01-29 10:46 | Progress Note ---
Assessment and Plan POD2 s/p primary LTCS Acute anemia- ferrous sulfate Breast feeding education Routine pp care d/c to home on POD3 Subjective - Subjective Date of service: 01/29/19 Principal diagnosis: s/p primary csec for failure to progress Interval history: POD2 s/p primary LTCS Patient reports: appetite normal, voiding normally, pain well controlled, flatus, ambulating normally [place]: doing well, bottle feeding (mom wants to breast feed) Objective - Vital Signs Latest vital signs: Vital Signs Temp Pulse Resp BP BP Pulse Ox 01/29/19 07:31 98.1 F 79 22 113/73 99 01/28/19 23:47 98.1 F 90 20 117/66 99 01/28/19 16:40 97.9 F 98 H 18 114/72 01/28/19 11:53 97.5 F L 80 18 125/77 Intake and Output 01/28/19 01/29/19 01/29/19 23:59 07:59 15:59 Intake Total 480 240 Balance 480 240 Intake: Oral 480 240 Other: Total, Intake Amount 480 240 # Voids Void 1 1 # Bowel Movements 1 - Exam Lungs: Present: Normal air movement Abdomen: Present: soft Uterus: Present: firm, fundal height below umbilicus. Absent: bogginess Extremities: Present: normal Incision: Present: dressed
[2019-01-30] MEDS: oxyCODONE /ACETAMINOPHEN 5-325MG TAB PO PRN ×3 (03:42→17:12)
[2019-01-30 08:49] VITALS: BP 131/85
[2019-01-30] MEDS ORDERED: LORazepam 2 MG/ML VIAL ONE (11:23)
--- NOTE | 2019-01-30 11:29 | Progress Note ---
Assessment and Plan POD3 s/p primary LTCS Acute anemia- ferrous sulfate Breast feeding education D/c to home today Subjective - Subjective Date of service: 01/30/19 Principal diagnosis: s/p primary csec for failure to progress Interval history: POD3 s/p primary LTCS Patient reports: appetite normal, voiding normally, pain well controlled, flatus, ambulating normally : doing well, bottle feeding Objective - Vital Signs Latest vital signs: Vital Signs Temp Pulse Resp BP Pulse Ox 01/30/19 07:33 99.7 F H 84 18 131/85 99 01/30/19 03:42 18 01/29/19 23:24 98.2 F 82 20 124/78 97 01/29/19 21:48 18 01/29/19 16:12 98.3 F 86 20 128/85 98 Intake and Output 01/29/19 01/30/19 01/30/19 23:59 07:59 15:59 Intake Total 960 360 Balance 960 360 Intake: Oral 960 Intake, Free Water 120 Other 240 Other: Total, Intake Amount 240 240 # Voids Void 1 1 - Exam Lungs: Present: Normal air movement Abdomen: Present: soft. Absent: distention, tenderness Uterus: Present: firm, fundal height below umbilicus Extremities: Present: normal Incision: Present: normal, dry, intact
--- NOTE | 2019-01-30 11:32 | Discharge Summary ---
Providers - Providers Date of Admission: 01/27/19 03:34 Date of discharge: 01/30/19 Attending physician: PASCALE PAULINO Primary care physician: PASCALE PAULINO Hospitalization Reason for admission: active labor Delivery: Procedure: primary low transverse Episiotomy: none Laceration: none Incision: normal, dry, intact Other procedures: none complications: none Discharge diagnosis: IUP at term delivered Hospital course: for failure to progress, fetus in OT presentation. course uncomplicated Disposition: DC-30 STILL A PATIENT Plan - Discharge Medications Prescriptions: Ferrous Sulfate [Ferrous Sulfate 324 MG] 324 mg PO BID #60 tablet. Ibuprofen [Motrin] 600 mg PO Q6H PRN #60 tablet PRN Reason: Pain oxyCODONE /ACETAMINOPHEN [Percocet 5/325] 1 tab PO Q6HR PRN #30 tablet PRN Reason: Pain - Provider Discharge Summary Activity: routine, no sex for 6 weeks, no heavy lifting 4 weeks, no strenuous exercise Diet: routine Instructions: routine Additional instructions: [] Smoking cessation referral if applicable(refer to patient education folder for contact #) [] Refer to [facility] Booklet Call your doctor immediately for: * Fever > 100.5 * Heavy vaginal bleeding ( >1 pad per hour) * Severe persistent headache * Shortness of breath * Reddened, hot, painful area to leg or breast * Drainage or odor from incision. * Keep incision clean and dry at all times and follow doctor's instructions regarding bathing/showering - Follow up plan Follow up: PASCALE PAULINO MD [Primary Care Provider] - 14 Days (Please call [facility] to schedule appointment.)
[2019-01-30] MEDS ORDERED: MEASLES, MUMPS & RUBELLA 12,500 UNIT/0.5 ML VACCINE SUB-Q ONE (17:00)
== END 2019-01-30 18:00 | disposition home or self-care (01) | DRG 765 ==
LOC: TRG 02:07 → LD 03:34 → TRG 03:34 → OB 20:22
PROVIDERS: ADMIT Obstetrics & Gynecology; ATTEND Obstetrics & Gynecology
PROC: 10D00Z1 Extraction of Products of Conception, Low, Open Approach (ICD-10-PCS; principal; 2019-01-27)
PROC: 3E0234Z Introduction of Serum, Toxoid and Vaccine into Muscle, Percutaneous Approach (ICD-10-PCS; 2019-01-30)
DX: O64.0XX0 Obstructed labor due to incomplete rotation of fetal head, not applicable or unspecified (principal); O98.32 Other infections with a predominantly sexual mode of transmission complicating childbirth; Z3A.38 38 weeks gestation of pregnancy; Z37.0 Single live birth; Z23 Encounter for immunization; A60.00 Herpesviral infection of urogenital system, unspecified; O99.214 Obesity complicating childbirth; E66.9 Obesity, unspecified; O90.81 Anemia of the puerperium; D64.9 Anemia, unspecified
CPT/HCPCS: 36415; 59025; 76815; 76819; 85014; 85018; 85025; 85027; 86850; 86900; 86901; 88307; G0378; J0290; J0595; J0690; J1885; J2060; J2270; J2405; J2590; J2765; J3010; J3490; J7120; J7121

== ENCOUNTER 2020-04-16 11:00 | Emergency (ER) | payer OTHER ==
[2020-04-16 11:51] VITALS: BP 164/103
--- NOTE | 2020-04-16 12:32 | XRay Report ---
LEFT SHOULDER 3 VIEWS INDICATION: shoulder pain. COMPARISON: None. IMPRESSION: No acute osseous or soft tissue abnormality. No significant DJD. Signer Name: Ramesh Burgos Jr, MD Signed: 04/16/2020 12:27 PM Workstation Name: [id number]
--- NOTE | 2020-04-16 13:46 | Emergency Department Report ---
ED Upper Extremity Inj HPI - General Chief Complaint: Extremity Injury, Upper Stated Complaint: LEFT SHOULDER PAIN Time Seen by Provider: 04/16/20 11:47 Source: patient Mode of arrival: Ambulatory Limitations: No Limitations - History of Present Illness Initial Comments: This is a 35-year-old female nontoxic, well nourished in appearance, no acute signs of distress presents to the ED with c/o of left shoulder pain 2 months. Patient denies any injuries or trauma. Patient denies any numbness, tingling, fever, chills, nausea, vomiting, chest pain, shortness of breath, headache, stiff neck. Patient denies any joint swelling or joint redness. Patient denies decreased range of motion. Patient denies any allergies or significant past medical history. MD Complaint: Injury to:: left, shoulder -: month(s) Other Extremity Injury: Shoulder: Left Severity scale (0 -10): 3 Improves With: immobilization Worsens With: movement of extremity Associated Symptoms: denies other symptoms. denies: weakness, numbness, neck pain, suspects foreign body, nausea/vomiting, heard/felt popping sensat - Related Data Previous Rx's Medication Instructions Recorded Last Taken Type Acetaminophen/Codeine [Tylenol #3] 1 tab PO Q6H PRN #15 tab 05/31/14 Unknown Rx Cyclopentolate 1% [Cyclogyl] 1 drops OP BID PRN #1 bottle 05/31/14 Unknown Rx Gentamicin 0.3% Ophth Soln 1 drops OP Q4H #1 bottle 05/31/14 01/21/19 Rx Ibuprofen [Motrin 800 MG tab] 800 mg PO Q8HR PRN #30 tablet 03/17/15 01/20/19 Rx Ketorolac [Toradol] 10 mg PO Q6H PRN #15 tablet 03/19/18 01/21/19 Rx methOCARBAMOL [Robaxin] 750 mg PO Q8H PRN #21 tablet 03/19/18 01/24/19 Rx Nitrofurantoin Sampson/M-Cryst 100 mg PO Q12HR 10 Days #20 capsule 08/07/18 01/24/19 Rx [Macrobid CAP] Ferrous Sulfate [Ferrous Sulfate 324 mg PO BID #60 tablet. 01/29/19 Unknown Rx 324 MG] Ibuprofen [Motrin] 600 mg PO Q6H PRN #60 tablet 01/29/19 Unknown Rx oxyCODONE /ACETAMINOPHEN [Percocet 1 tab PO Q6HR PRN #30 tablet 01/29/19 Unknown Rx 5/325] Naproxen 500 mg PO Q12H PRN #12 tablet 04/16/20 Unknown Rx Allergies Allergy/AdvReac Type Severity Reaction Status Date / Time No Known Allergies Allergy Unverified 04/16/20 11:43 ED Review of Systems ROS: Stated complaint: LEFT SHOULDER PAIN Other details as noted in HPI Comment: All other systems reviewed and negative Constitutional: denies: chills, fever Eyes: denies: eye pain, eye discharge, vision change ENT: denies: ear pain, throat pain Respiratory: denies: cough, shortness of breath, wheezing Cardiovascular: denies: chest pain, palpitations Endocrine: no symptoms reported Gastrointestinal: denies: abdominal pain, nausea, diarrhea Genitourinary: denies: urgency, dysuria, discharge Musculoskeletal: denies: back pain, joint swelling, arthralgia Skin: denies: rash, lesions Neurological: denies: headache, weakness, paresthesias Psychiatric: denies: anxiety, depression Hematological/Lymphatic: denies: easy bleeding, easy bruising ED Past Medical Hx - Past Medical History Previous Medical History?: No Hx Hypertension: No Hx Heart Attack/AMI: No Hx Congestive Heart Failure: No Hx Diabetes: No Hx Deep Vein Thrombosis: No Hx Liver Disease: No Hx Renal Disease: No Hx Sickle Cell Disease: No Hx Seizures: No Hx Asthma: No Hx COPD: No Hx HIV: No - Surgical History Hx Pacemaker: No Hx Internal Defibrillator: No Additional Surgical History: vag procedure C SECTION - Social History Smoking Status: Former Smoker - Medications Home Medications: Home Medications Medication Instructions Recorded Confirmed Last Taken Type Acetaminophen/Codeine [Tylenol #3] 1 tab PO Q6H PRN #15 tab 05/31/14 01/28/19 Unknown Rx Cyclopentolate 1% [Cyclogyl] 1 drops OP BID PRN #1 bottle 05/31/14 01/28/19 Unknown Rx Gentamicin 0.3% Ophth Soln 1 drops OP Q4H #1 bottle 05/31/14 01/28/19 01/21/19 Rx Ibuprofen [Motrin 800 MG tab] 800 mg PO Q8HR PRN #30 tablet 03/17/15 01/28/19 01/20/19 Rx Ketorolac [Toradol] 10 mg PO Q6H PRN #15 tablet 03/19/18 01/28/19 01/21/19 Rx methOCARBAMOL [Robaxin] 750 mg PO Q8H PRN #21 tablet 03/19/18 01/28/19 01/24/19 Rx Nitrofurantoin Sampson/M-Cryst 100 mg PO Q12HR 10 Days #20 capsule 08/07/18 01/28/19 01/24/19 Rx [Macrobid CAP] Ferrous Sulfate [Ferrous Sulfate 324 mg PO BID #60 tablet. 01/29/19 Unknown Rx 324 MG] Ibuprofen [Motrin] 600 mg PO Q6H PRN #60 tablet 01/29/19 Unknown Rx oxyCODONE /ACETAMINOPHEN [Percocet 1 tab PO Q6HR PRN #30 tablet 01/29/19 Unknown Rx 5/325] Naproxen 500 mg PO Q12H PRN #12 tablet 04/16/20 Unknown Rx ED Physical Exam - General Limitations: No Limitations General appearance: alert, in no apparent distress - Head Head exam: Present: atraumatic, normocephalic - Eye Eye exam: Present: normal appearance - Neck Neck exam: Present: normal inspection, full ROM - Respiratory Respiratory exam: Absent: respiratory distress - Cardiovascular Cardiovascular Exam: Present: regular rate - Extremities Exam Extremities exam: Present: normal inspection, full ROM, tenderness, normal capillary refill. Absent: joint swelling - Expanded Upper Extremity Exam Left General: Present: normal inspection Shoulder Exam: Present: normal inspection, full ROM, tenderness. Absent: swelling, abrasion, laceration, ecchymosis, deformity, crepidus, dislocation, erythema, tenderness over AC joint Upper Arm exam: Present: normal inspection, full ROM. Absent: tenderness, swelling Elbow exam: Present: normal inspection, full ROM. Absent: tenderness, swelling Forearm Wrist exam: Present: normal inspection, full ROM. Absent: tenderness, swelling Hand Wrist exam: Present: normal inspection, full ROM. Absent: tenderness, swelling Vascular: Present: normal capillary refill. Absent: vascular compromise (Neurovascular within normal limits) - Back Exam Back exam: Present: normal inspection, full ROM. Absent: tenderness, CVA tenderness (R), CVA tenderness (L), muscle spasm, paraspinal tenderness, vertebral tenderness, rash noted - Neurological Exam Neurological exam: Present: alert, oriented X3, normal gait - Psychiatric Psychiatric exam: Present: normal affect, normal mood - Skin Skin exam: Present: warm, dry, intact, normal color. Absent: rash ED Course Vital Signs 04/16/20 11:48 Temperature 98.4 F Pulse Rate 93 H Respiratory 20 Rate Blood Pressure 164/103 O2 Sat by Pulse 99 Oximetry - Reevaluation(s) Reevaluation #1: 04/16/20 13:47 Patient is speaking in full sentences with no signs of distress noted. ED Medical Decision Making - Radiology Data Referring Physician: GLADIS PERERA Patient Name: HEBER OATES Date of : 1985 Sex: Female Report Date: 2020-04-16 Report Status: Finalized [facility] [address] [place] [address] XRay Report Signed Patient: HEBER OATES MR#: [id number] : 1985 Acct:[id number] Age/Sex: 35 / F ADM Date: 04/16/20 Loc: ED Attending Dr: Ordering Physician: GLADIS PERERA NP Date of Service: 04/16/20 Procedure(s): XR shoulder 2+V LT Accession Number(s): [id number] cc: GLADIS SCANLON NP Fluoro Time In Minutes: LEFT SHOULDER 3 VIEWS INDICATION: shoulder pain. COMPARISON: None. IMPRESSION: No acute osseous or soft tissue abnormality. No significant DJD. Signer Name: Ramesh Burgos Jr, MD Signed: 04/16/2020 12:27 PM Workstation Name: [id number] Transcribed By: TTR Dictated By: RAMESH BURGOS JR, MD Electronically Authenticated By: RAMESH BURGOS JR, MD Signed Date/Time: 04/16/20 122 DD/ 26 TD/TT: - Medical Decision Making This is a 35-year-old female that presents with left shoulder strain. Patient is stable and was examined by me. I referred patient to an orthopedic doctor for further evaluation for possible MRI. X-ray has been obtained and dictated by the radiologist. Patient is notified of the x-ray report with noted by the patient. Patient does have normal range of motion with no joint swelling. No ecchymosis. no joint redness or swelling. Not warm to touch. No signs of cellulites present. Patient was instructed to RICE therapy. Patient is discharged with Motrin. At time of discharge, the patient does not seem toxic or ill in appearance. No acute signs of distress noted. Patient agrees to discharge treatment plan of care. No further questions noted by the patient. Critical care attestation.: If time is entered above; I have spent that time in minutes in the direct care of this critically ill patient, excluding procedure time. ED Disposition Clinical Impression: Left shoulder strain Qualifiers: Encounter type: initial encounter Qualified Code(s): S46.912A - Strain of unspecified muscle, fascia and tendon at shoulder and upper arm level, left arm, initial encounter Disposition: TO HOME OR SELFCARE Is pt being admited?: No Does the pt Need Aspirin: No Condition: Stable Instructions: RICE Therapy for Routine Care of Injuries, [id number] Additional Instructions: Follow-up with a orthopedic doctor in 3-5 days or if symptoms worsen and continue return to emergency room as soon as possible. Prescriptions: Naproxen 500 mg PO Q12H PRN #12 tablet PRN Reason: Pain , Severe (7-10) Referrals: PRIMARY CARE, [Primary Care Provider] - 3-5 Days MIGNON DALEY MD [Staff Physician] - 3-5 Days Time of Disposition: 13:48
== END 2020-04-16 14:01 | disposition home or self-care (01) ==
LOC: ED 11:00
DX: S46.912A Strain of unspecified muscle, fascia and tendon at shoulder and upper arm level, left arm, initial encounter (principal); Z87.891 Personal history of nicotine dependence; Z79.899 Other long term (current) drug therapy; Z98.890 Other specified postprocedural states; X58.XXXA Exposure to other specified factors, initial encounter; Y93.89 Activity, other specified; Y92.89 Other specified places as the place of occurrence of the external cause; Y99.8 Other external cause status
CPT/HCPCS: 99283

== ENCOUNTER 2020-04-17 11:17 | Emergency (ER) | payer OTHER ==
[2020-04-17 11:46] VITALS: BP 165/105
--- NOTE | 2020-04-17 12:05 | Emergency Department Report ---
Chief Complaint: Headache Stated Complaint: NECK/SHOULDER/HEAD LEFT SIDE PAIN - HPI History of Present Illness: 35-year-old -[place] female presents to the emergency room for her discharge paperwork. As patient states she had to leave to go to work and did not get her paperwork. - Exam Vital Signs: Vital Signs 04/17/20 11:44 Temperature 98.1 F Pulse Rate 95 H Respiratory 16 Rate Blood Pressure 165/105 [Right] O2 Sat by Pulse 100 Oximetry Physical Exam: Patient is alert and oriented x3 no acute distress nontoxic in appearance Neck full range of motion. Extremities full range of motion Ambulatory without difficulties MSE screening note: Focused history and physical exam performed. Due to findings the following was ordered: 35-year-old -[place] female presents to the emergency room for her discharge paperwork. As patient states she had to leave to go to work and did not get her paperwork. Patient decided to leave without her paperwork when she asked what pain medication that the provider was discharging her on. Patient was being discharged home on naproxen. Patient had x-rays done yesterday which showed no acute abnormalities and paperwork stated that she is can follow-up with the orthopedic provider for further evaluation. ED Disposition for MSE Disposition: Z-07 MED SCREENING EXAM-LEFT Is pt being admited?: No Does the pt Need Aspirin: No Condition: Stable
== END 2020-04-17 12:02 | disposition left against medical advice (07) ==
LOC: ED 11:17
DX: M54.2 Cervicalgia (principal); Z53.21 Procedure and treatment not carried out due to patient leaving prior to being seen by health care provider

== ENCOUNTER 2021-09-09 17:29 | Emergency (ER) | payer OTHER ==
--- NOTE | 2021-09-10 01:56 | Emergency Department Report ---
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 She went to the restroom room thinking that she had to have a bowel movement and then noticed some blood whenever she touched down in the vaginal area decided come to emergency department to be evaluated for vaginal bleeding. Has dull crampy pain across her lower abdomen but no fever, chills, sweats. No presyncope. No nausea, no vomiting MD Complaint: vaginal bleeding -: Gradual Location: suprapubic Severity: mild, moderate Quality: dull Consistency: constant Improves with: none Worsens with: none Associated Symptoms: vaginal bleeding - Related Data Sexually active: No Previous Rx's Medication Instructions Recorded Last Taken Type Acetaminophen/Codeine [Tylenol #3] 1 tab PO Q6H PRN #15 tab 05/31/14 Unknown Rx Cyclopentolate 1% [Cyclogyl] 1 drops OP BID PRN #1 bottle 05/31/14 Unknown Rx Gentamicin 0.3% Ophth Soln 1 drops OP Q4H #1 bottle 05/31/14 01/21/19 Rx Ibuprofen [Motrin 800 MG tab] 800 mg PO Q8HR PRN #30 tablet 03/17/15 01/20/19 Rx Ketorolac [Toradol] 10 mg PO Q6H PRN #15 tablet 03/19/18 01/21/19 Rx methOCARBAMOL [Robaxin] 750 mg PO Q8H PRN #21 tablet 03/19/18 01/24/19 Rx Nitrofurantoin Travis/M-Cryst 100 mg PO Q12HR 10 Days #20 capsule 08/07/18 01/24/19 Rx [Macrobid CAP] Ferrous Sulfate [Ferrous Sulfate 324 mg PO BID #60 tablet. 01/29/19 Unknown Rx 324 MG] Ibuprofen [Motrin] 600 mg PO Q6H PRN #60 tablet 01/29/19 Unknown Rx oxyCODONE /ACETAMINOPHEN [Percocet 1 tab PO Q6HR PRN #30 tablet 01/29/19 Unknown Rx 5/325] Naproxen 500 mg PO Q12H PRN #12 tablet 04/16/20 Unknown Rx Allergies Allergy/AdvReac Type Severity Reaction Status Date / Time No Known Allergies Allergy Unverified 04/16/20 11:43 ED Review of Systems ROS: Stated complaint: 15 WEEKS /ABD PAIN AND BLEEDING Other details as noted in HPI Comment: All other systems reviewed and negative ED Past Medical Hx - Past Medical History Hx Hypertension: Yes Hx Heart Attack/AMI: No Hx Congestive Heart Failure: No Hx Diabetes: No Hx Deep Vein Thrombosis: No Hx Liver Disease: No Hx Renal Disease: No Hx Sickle Cell Disease: No Hx Seizures: No Hx Asthma: No Hx COPD: No Hx HIV: No - Surgical History Hx Pacemaker: No Hx Internal Defibrillator: No Additional Surgical History: C section - Social History Smoking Status: Former Smoker - Medications Home Medications: Home Medications Medication Instructions Recorded Confirmed Last Taken Type Acetaminophen/Codeine [Tylenol #3] 1 tab PO Q6H PRN #15 tab 05/31/14 01/28/19 Unknown Rx Cyclopentolate 1% [Cyclogyl] 1 drops OP BID PRN #1 bottle 05/31/14 01/28/19 Unknown Rx Gentamicin 0.3% Ophth Soln 1 drops OP Q4H #1 bottle 05/31/14 01/28/19 01/21/19 Rx Ibuprofen [Motrin 800 MG tab] 800 mg PO Q8HR PRN #30 tablet 03/17/15 01/28/19 01/20/19 Rx Ketorolac [Toradol] 10 mg PO Q6H PRN #15 tablet 03/19/18 01/28/19 01/21/19 Rx methOCARBAMOL [Robaxin] 750 mg PO Q8H PRN #21 tablet 03/19/18 01/28/19 01/24/19 Rx Nitrofurantoin Travis/M-Cryst 100 mg PO Q12HR 10 Days #20 capsule 08/07/18 01/28/19 01/24/19 Rx [Macrobid CAP] Ferrous Sulfate [Ferrous Sulfate 324 mg PO BID #60 tablet. 01/29/19 Unknown Rx 324 MG] Ibuprofen [Motrin] 600 mg PO Q6H PRN #60 tablet 01/29/19 Unknown Rx oxyCODONE /ACETAMINOPHEN [Percocet 1 tab PO Q6HR PRN #30 tablet 01/29/19 Unknown Rx 5/325] Naproxen 500 mg PO Q12H PRN #12 tablet 04/16/20 Unknown Rx ED Physical Exam - General Limitations: No Limitations General appearance: alert, in no apparent distress - Head Head exam: Present: atraumatic, normocephalic - Eye Eye exam: Present: normal appearance - ENT ENT exam: Present: mucous membranes moist - Neck Neck exam: Present: normal inspection - Respiratory Respiratory exam: Present: normal lung sounds bilaterally. Absent: respiratory distress - Cardiovascular Cardiovascular Exam: Present: regular rate, normal rhythm. Absent: systolic murmur, diastolic murmur, rubs, gallop - GI/Abdominal GI/Abdominal exam: Present: soft, normal bowel sounds. Absent: distended, tenderness, guarding, rebound, rigid, hyperactive bowel sounds, hypoactive bowel sounds, organomegaly - Extremities Exam Extremities exam: Present: normal inspection - Back Exam Back exam: Present: normal inspection - Neurological Exam Neurological exam: Present: alert, oriented X3 - Psychiatric Psychiatric exam: Present: normal affect, normal mood - Skin Skin exam: Present: warm, dry, intact, normal color. Absent: rash ED Course Vital Signs 09/09/21 18:21 Temperature 98.3 F Pulse Rate 99 H Respiratory 14 Rate Blood Pressure 137/76 [Right] O2 Sat by Pulse 100 Oximetry ED Medical Decision Making - Lab Data Result diagrams: 09/10/21 02:38 - Radiology Data Radiology results: report reviewed [facility] [address] [place] [address] Ultrasound Report Signed Patient: HEBER OATES MR#: [id number] : 1985 Acct:[id number] Age/Sex: 36 / F ADM Date: 09/09/21 Loc: ED Attending Dr: Ordering Physician: IRVING THORNTON Date of Service: 09/10/21 Procedure(s): US OB transvaginal Accession Number(s): [id number] cc: IRVING THORNTON US OB follow up, US OB transvaginal INDICATION / CLINICAL INFORMATION: 18 weeks and vaginal bleeding COMPARISON: None available. TECHNIQUE: Using a transcutaneous probe, multiple grayscale, color Doppler, and spectral Doppler images of the uterus and fetus were captured and stored. Additional imaging of the cervix using an endovaginal probe with acquisition of multiple brock scale and color Doppler images.. FINDINGS: Single cephalic fetus heart rate 149. Amniotic fluid is grossly normal and the largest vertical pocket 3.4 cm. Grade 1 anterior/fundal placenta. No focal abnormality of the placenta. A curvilinear focus of hypoechoic echotexture along the margin of the gestational sac measures 1.4 x 0.4 x 0.5 cm and may represent subchorionic hemorrhage. The cervix measures 3.6 cm and appears closed. Biparietal Diameter = 3.03 cm = 15, 4 weeks, days Head Circumference = 11.28 cm = 15, 3 weeks, days Abdominal Circumference = 9.3 cm = 15, 3 weeks, days Femur Length = 1.8 cm = 15, 2 weeks, days Average Ultrasound Age (AUA) = 15, 3 weeks, days. EDC 03/01/2022. Clinical estimate of gestational age based on LMP of 04/16/2021 is 15 weeks 6 days. Estimated weight = not calculated.. IMPRESSION: 1. Small curvilinear focus of hypoattenuation thought to lie along the margin of the gestational sac is favored to reflect a small subchorionic hemorrhage. 2. Single living fetus as detailed. Signer Name: Naida Zuniga II, MD Signed: 09/10/2021 3:47 AM Workstation Name: [id number] Transcribed By: IGNACIO Dictated By: NAIDA ZUNIGA II, MD Electronically Authenticated By: NAIDA ZUNIGA II, MD Signed Date/Time: 09/10/21346 DD/ 1 TD/TT: - Medical Decision Making This patient presents with vaginal bleeding (spotting) in the second trimester, differential diagnosis includes ectopic , IUP, month threatened/inevitable , along with a completed . Patient is HDS and without a history of coagulopathy or infectious symptoms. The ultrasound does reveal an IUP at 15 weeks with an elevated hCG quant Based on exam history and ED work-up patient presentation is not consistent with an ectopic , life-threatening coagulopathy, trauma, serious bacterial infection, central process or other emergency Critical care attestation.: If time is entered above; I have spent that time in minutes in the direct care of this critically ill patient, excluding procedure time. ED Disposition Clinical Impression: Vaginal bleeding in patient after first trimester Disposition: 01 HOME / SELF CARE / HOMELESS Is pt being admited?: No Does the pt Need Aspirin: No Condition: Stable Instructions: Abdominal Pain (ED), Activity Restriction During Forms: Work/School Release Form(ED)
[2021-09-10 03:14] LABS: Basophils # (Auto) 0.1 K/mm3 (0.0-0.1); Basophils % (Auto) 0.7 % (0.0-1.8); Eosinophils # (Auto) 0.2 K/mm3 (0.0-0.4); Eosinophils % (Auto) 1.8 % (0.0-4.3); Hematocrit 36.6 % (30.3-42.9); Hemoglobin 11.8 gm/dl (10.1-14.3); Lymphocytes # (Auto) 3.2 K/mm3 (1.2-5.4); Lymphocytes % (Auto) 36.7 % (13.4-35.0); Mean Corpuscular HGB Conc 32 % (30-34); Mean Corpuscular Volume 82 fl (79-97); Monocytes # (Auto) 0.5 K/mm3 (0.0-0.8); Monocytes % (Auto) 5.8 % (0.0-7.3); Platelet Count 223 K/mm3 (140-440); Red Blood Count 4.47 M/mm3 (3.65-5.03); Red Cell Distribution Width 15.8 % (13.2-15.2)
--- NOTE | 2021-09-10 03:52 | Ultrasound Report ---
US OB follow up, US OB transvaginal INDICATION / CLINICAL INFORMATION: 18 weeks and vaginal bleeding COMPARISON: None available. TECHNIQUE: Using a transcutaneous probe, multiple grayscale, color Doppler, and spectral Doppler imag es of the uterus and fetus were captured and stored. Additional imaging of the cervix using an endova ginal probe with acquisition of multiple brock scale and color Doppler images.. FINDINGS: Single cephalic fetus heart rate 149. Amniotic fluid is grossly normal and the largest vertical pocket 3.4 cm. Grade 1 anterior/fundal placenta. No focal abnormality of the placenta. A curvilinear focus of hypoechoic echotexture along the margin of the gestational sac measures 1.4 x 0.4 x 0.5 cm and may represent subchorionic hemorrhage. The cervix measures 3.6 cm and appears closed. Biparietal Diameter = 3.03 cm = 15, 4 weeks, days Head Circumference = 11.28 cm = 15, 3 weeks, days Abdominal Circumference = 9.3 cm = 15, 3 weeks, days Femur Length = 1.8 cm = 15, 2 weeks, days Average Ultrasound Age (AUA) = 15, 3 weeks, days. EDC 03/01/2022. Clinical estimate of gestational age based on LMP of 04/16/2021 is 15 weeks 6 days. Estimated weight = not calculated.. IMPRESSION: 1. Small curvilinear focus of hypoattenuation thought to lie along the margin of the gestational sac is favored to reflect a small subchorionic hemorrhage. 2. Single living fetus as detailed. Signer Name: Vikram Moreno II, MD Signed: 09/10/2021 3:47 AM Workstation Name: [id number]
[2021-09-10 06:01] VITALS: BP 132/64
== END 2021-09-10 06:01 | disposition home or self-care (01) ==
LOC: ED 17:29
DX: O20.9 Hemorrhage in early pregnancy, unspecified (principal); Z3A.15 15 weeks gestation of pregnancy; I10 Essential (primary) hypertension; Z98.890 Other specified postprocedural states; Z87.891 Personal history of nicotine dependence
CPT/HCPCS: 36415; 76816; 76817; 84702; 85025; 99284